=== PATIENT | female | born 1990 | race Caucasian/White ===

== ENCOUNTER 2017-01-05 16:56 | Emergency (ER) | payer SELFPAY ==
[2017-01-05] MEDS ORDERED: NORMAL SALINE 10 ML SYRINGE FLUSH IVP PRN (17:20)
[2017-01-05] MEDS ORDERED: Sodium Chloride 0.9% 1,000 ML PRIMARY IV ONE (17:20)
[2017-01-05 17:26] VITALS: RESP 18; TEMP 97
[2017-01-05] MEDS ORDERED: Famotidine Inj 20 MG in Normal Saline Flush 10 ML IVP ONE (17:27)
[2017-01-05] MEDS ORDERED: ONDANSETRON 4 MG/2 ML VIAL IVP ONE (17:27)
[2017-01-05 17:33] LABS: BASOPHILS # (AUTO) 0.02 10*3/UL; BASOPHILS % (AUTO) 0.5 % (0-1); EOSINOPHILS # (AUTO) 0.14 10*3/UL; EOSINOPHILS % (AUTO) 3.6 % (0-8); HEMATOCRIT 36.2 % (37.0-47.0); HEMOGLOBIN 12.4 g/dL (12.0-16.0); LYMPHOCYTES # (AUTO) 1.44 10*3/uL; MEAN CORPUSCULAR HEMOGLOBIN 30.2 PG (27-31); MEAN CORPUSCULAR HGB CONC 34.3 g/dL (33-37); MEAN CORPUSCULAR VOLUME 88.3 FL (81-99); MEAN PLATELET VOLUME 9.5 FL (7.4-12.2); MONOCYTES # (AUTO) 0.45 10*3/UL (0.3-0.8); MONOCYTES % (AUTO) 11.7 % (5-15); NEUTROPHILS # (AUTO) 1.79 10*3/UL; NEUTROPHILS % (AUTO) 46.7 % (50-80)
[2017-01-05 17:34] LABS: PLATELET MORPHOLOGY COMMENT NORMAL MORPHOLOGY (NORM); RBC MORPHOLOGY COMMENT NORMAL MORPHOLOGY (NORM); WBC MORPHOLOGY COMMENT NORMAL MORPHOLOGY (NORM)
[2017-01-05 17:46] LABS: BLOOD UREA NITROGEN 11 mg/dL (7-22); BUN/CREATININE RATIO 13.75 (6-20); CALCIUM 8.4 mg/dL (8.7-10.7); EST GLOMERULAR FILTRATION > 60 (>60 ml/min/1.73m(2)); LIPASE 55 IU/L (23-300); SERUM ALBUMIN 3.7 g/dL (3.5-4.8)
[2017-01-05 17:58] LABS: C-REACTIVE PROTEIN 14.7 mg/dL (0.0-0.9)
[2017-01-05 18:10] LABS: BILIRUBIN,URINE NEGATIVE (NEG); CLARITY,URINE CLEAR (CLEAR); COLOR,URINE YELLOW; GLUCOSE, URINE (UA) NEGATIVE (NEG); NITRATE,URINE NEGATIVE (NEG); OCCULT BLOOD,URINE MODERATE (NEG); PROTEIN,URINE NEGATIVE (NEG); UROBILINOGEN,URINE 0.2 EU/dL (0.2)
[2017-01-05 18:14] LABS: SQUAMOUS EPITHELIAL CELL,UR MANY; URINE SAMPLE TYPE VOIDED SPECIMEN
--- NOTE | 2017-01-05 19:16 | PDOC ---
Abdomen/Flank HPI - General Chief Complaint: Abdomen Pain Stated Complaint: "I HAVE COLITIS" Date Seen by Provider: 01/05/17 Time Seen by Provider: 17:00 Source: POSITIVE: Patient Exam Limitations: POSITIVE: No limitations Nurse's Notes Reviewed & Considered: Yes - History of Present Illness Initial Comments: The patient is a 26-year-old female who presents to the emergency department with complaints of abdominal pain and diarrhea. She states that 3 days ago she had onset of diarrhea. Initially this was loose watery diarrhea. Over last 24 hours the stool has started to contain blood as well. She does have some associated generalized abdominal pain. She states that her pain intensifies significantly just before she has a bowel movement and then is relieved after she has a bowel movement. Eating also seems to make the pain somewhat worse. She was seen in the emergency department [place] [facility] [place]. She underwent blood work, pelvic exam, chest x-ray and abdominal CT. Her blood work was all essentially unremarkable with a normal white blood cell count and normal electrolytes. Her TSH was elevated and T4 was low. She had CT of the abdomen and pelvis which showed inflammation in the ascending colon consistent with colitis as well as moderate stool in the descending colon. No other acute abnormalities were noted on the radiology reading. She reports that she was diagnosed with colitis and sent home. She was given a prescription for Zofran. She last took Zofran about 9:00 this morning. She has continued nausea without vomiting. She has continued symptoms and became concerned and decided to come here for a second opinion. She denies urinary symptoms, fevers or chills. She does report over the past several months she has had fairly significant weight loss. She states that she is vitamin D deficient as well. She denies any recent travel and has not had any recent antibiotic usage. - Patient Home Medications Home Medications: Home Medications Acetaminophen [Tylenol] 500 mg PO PRN PRN 01/05/17 Levothyroxine Sodium 125 mcg PO DAILY 01/05/17 Ondansetron Odt [Zofran Odt] 8 mg PO Q6H PRN #10 tab.rapdis 01/05/17 Ondansetron [Zofran Odt] 4 mg PO Q6H PRN PRN 01/05/17 - Patient Allergies Allergies/Adverse Reactions: Allergies Allergy/AdvReac Type Severity Reaction Status Date / Time levofloxacin [From Levaquin] Allergy Intermediate HIVES Verified 01/05/17 17:15 Penicillins Allergy Intermediate HIVES Verified 01/05/17 17:15 Past Medical History - heen HEENT History: Denies History Cardiovascular History: Denies History Respiratory History: Denies History Gastrointestinal History: Colitis, Other (please comment) Additional Gastrointestinal History: DX'D YESTERDAY 01/04/17 IN [facility] PER PT. HX OF UMB HERNIA SURGERY X 2 Genitourinary History: Denies History Endocrine History: Denies History Musculoskeletal History: Denies History Prosthesis or Implant: No Neurological History: Denies History Blood Disorders: Anemia Psychiatric History: Denies History LMP: NOW Obstetrical History: Labor, Delivery Additional Obstetrical History: X1 : 6 Para: 5 Cancer History: Denies History In Past Year Been Physically Harmed or Verbally Threatened: No History of MDRO: No Tobacco Use: Current Every Day Smoker Alcohol Use: Rarely Substance Use Type: None Previous Surgical History: Yes Type / Date of Surgery: C SECTION, HERNIA X2 Anesthesia Reactions: No Significant Family History: No pertinent family hx Past Medical History Reviewed: Reviewed - No Changes ROS - Limitations ROS Limitations: No Limitations Constitution: DENIES: Chills, Fever Cardiovascular: REPORTS: Denies Cardiac Symptoms Respiratory: REPORTS: Denies Resp Symptoms Neurological: REPORTS: Dizziness (Somewhat lightheaded especially with standing) . DENIES: Confusion, Headache, Numbness, Weakness Gastrointestinal: REPORTS: Abdominal Pain, Nausea, Diarrhea, Bloody Stools. DENIES: Vomitting Endocrine: REPORTS: Fatigue Musculoskeletal: REPORTS: Denies MS Symptoms Genitourinary: REPORTS: Denies Symptoms Eyes: REPORTS: Denies Symptoms ENT: REPORTS: Denies Symptoms Skin: DENIES: Rash Abdominal/Flank Pain PE - General Appearance General Appearance: POSITIVE: Alert, Cooperative, No Acute Distress - HEENT HEENT: POSITIVE: Head Inspection Nml, Eyes Inspection Nml, Ears Inspection Nml, Nose Inspection Nml, Oral/Dental Inspect. Nml, Pharynx Inspect. Nml - Neck Neck: POSITIVE: Normal Inspection. NEGATIVE: Lymphadenopathy - Respiratory Respiratory: POSITIVE: No Respiratory Distress, Breath Sounds Normal - Cardiovascular Cardiovascular: POSITIVE: Regular Rate and Rhythm, Heart Sounds Normal - Abdomen Abdomen: Soft: (All Quadrants), Normal Bowel Sounds: (All Quadrants), No Distention: (All Quadrants) Additional Abdominal Details: She does have mild generalized abdominal tenderness without guarding or rebound tenderness - Skin Skin: POSITIVE: Intact, No Rash - Extremities Extremity: Normal ROM: (All Extremities), Normal Inspection: (All Extremities) - Neurological Neurological: POSITIVE: Oriented X3, paper roller Normal As Tested, Motor Normal, Sensation Normal Abdomen Progress - Results Reviewed by me Radiology Findings: Radiology reports from her chest x-ray and [facility] [place] [facility] were [place]. Lab Results Reviewed: Yes Lab Results:: Laboratory Results 01/05/17 01/05/17 Range/Units 17:25 18:00 WBC 3.84 L (4.8-10.8) 10^3/uL RBC 4.10 L (4.20-5.40) 10^6/uL Hgb 12.4 (12.0-16.0) g/dL Hct 36.2 L (37.0-47.0) % MCV 88.3 (81-99) FL MCH 30.2 (27-31) PG MCHC 34.3 (33-37) g/dL RDW Std Deviation 41.3 (39-50) fL RDW Coeff of [place] 13.1 (11.5-14.5) % Plt Count 165 (140-350) 10*3/uL MPV 9.5 (7.4-12.2) FL Immature Gran % (Auto) 0 (0-5) % Neut % (Auto) 46.7 L (50-80) % Lymph % (Auto) 37.5 (10-50) % Love % (Auto) 11.7 (5-15) % Eos % (Auto) 3.6 (0-8) % Baso % (Auto) 0.5 (0-1) % Immature Gran # (Auto) 0 10*3/UL Neut # (Auto) 1.79 10*3/UL Lymph # (Auto) 1.44 10*3/uL Love # (Auto) 0.45 (0.3-0.8) 10*3/UL Eos # (Auto) 0.14 10*3/UL Baso # (Auto) 0.02 10*3/UL WBC Morphology Comment Normal morphology (NORM) Plt Morphology Comment Normal morphology (NORM) RBC Morph Comment Normal morphology (NORM) Sodium 137 (135-145) meq/L Potassium 3.3 L (3.8-5.2) meq/L Chloride 108 (98-112) meq/L Carbon Dioxide 22 L (23-33) meq/L Anion Gap 7 (5-20) BUN 11 (7-22) mg/dL Creatinine 0.8 (0.50-1.20) mg/dL Estimated GFR > 60 (>60 ml/min/1.73m(2)) BUN/Creatinine Ratio 13.75 (6-20) Glucose 87 (78-110) mg/dL Calculated Osmolality 281.0 (267-292) mOsm/kg Calcium 8.4 L (8.7-10.7) mg/dL Total Bilirubin 0.4 (0.3-1.2) mg/dL AST 16 (8-39) IU/L ALT 25 (9-52) IU/L Alkaline Phosphatase 49 (38-126) IU/L C-Reactive Protein 14.7 H (0.0-0.9) mg/dL Total Protein 6.6 (6.1-8.0) g/dL Albumin 3.7 (3.5-4.8) g/dL Globulin 2.9 (2.50-4.10) g/dL Albumin/Globulin Ratio 1.20 L (1.3-2.0) mg/g Amylase 42 (30-110) U/L Lipase 55 (23-300) IU/L Serum HCG, Qual Negative Ur Collection Type Voided specimen Urine Color Yellow Urine Clarity Clear (CLEAR) Urine pH 6.0 (5.0-8.5) Ur Specific [place] 1.010 (1.005-1.030) Urine Protein Negative (NEG) mg/dl Urine Glucose (UA) Negative (NEG) mg/dL Urine Ketones Negative (NEG) Urine Occult Blood Moderate H (NEG) Urine Nitrate Negative (NEG) Urine Bilirubin Negative (NEG) Urine Urobilinogen 0.2 (0.2) EU/dL Ur Leukocyte Esterase Negative (NEG) Urine RBC 3-5 (NONE) /hpf Urine WBC None (NONE) Ur Squamous Epith Cells Many (NONE) Ur Renal Epithelial Cell None (NONE) Urine Crystals None Urine Bacteria None (NONE) Urine Casts None (NONE) Urine Mucus None (NONE) Urine Trichomonas None (NONE) Urine Yeast None (NONE) Ur Culture Indicated? Culture not set - Patient's Progress MDM / ED Course: On arrival the patient was somewhat orthostatic with a raisin pulse from the 70s to the 100s with standing. An IV was established and she did receive 1 L bolus of normal saline. She also received Zofran 4 mg IV and Pepcid 20 mg IV. After administration of medications her nausea was improved and her stomach was less upset. Lab work was obtained from here and was all unremarkable except for an elevated CRP at 16. We did obtain records [place] [facility] [place] visit yesterday. This was also reviewed. Her CT abdomen and pelvis did show inflammation in the descending colon consistent with colitis. The patient's hemoglobin is slightly lower than yesterday however stable. At this point the patient was unable to give a stool sample here. She appears to be hemodynamically stable. She will be sent home with instructions to collect stool studies for C. difficile, Giardia, cryptosporidium and culture. She will bring that back to the lab here. At this point differential diagnosis includes infectious colitis versus inflammatory bowel disease. She was advised return to the emergency room if she develops increased pain, increased bleeding, fever, any worsening or change in symptoms. She will follow-up with her primary care provider and Sree tomorrow or the next day. Hopefully by then stool studies will be available. If this is negative and she has continued symptoms she will likely need colonoscopy. In addition the patient has experienced weight loss over the last several months and her TSH was significantly elevated at 30 on her blood work from [facility] [place]. She is advised to discuss this with her primary care provider as well. - Consult Counseled: POSITIVE: Patient, RE: Lab Results, RE: Radiology Results, RE: DX, RE : Need for F/U Patient Care Time - Estimated PCT Patient Care Time (In Minutes): 35 Vital Signs - Recent Vital Signs Vital Signs: Vital Signs (Last 8 hours) Temp Pulse Pulse Pulse Pulse Resp BP 01/05/17 17:00 69 75 91 106/62 01/05/17 16:57 97 F 74 18 BP BP BP Pulse Ox 01/05/17 17:00 96/66 96/71 01/05/17 16:57 96/54 98 - VS Reviewed Vital Signs Reviewed: Yes Discharge Clinical Impression: Colitis Discharge Disposition: Discharged to Home Condition: Stable Prescriptions / Orders: Ondansetron Odt [Zofran Odt] 8 mg PO Q6H PRN #10 tab.rapdis PRN Reason: Nausea / Vomiting Patient Instructions Given at Discharge: Colitis (ED) Additional Instructions: The CAT scan of your abdomen and pelvis from yesterday at [facility] does show inflammation in the first part of the large intestine consistent with colitis. Your blood work done today is all unremarkable except for an elevated inflammatory marker. Stool studies have been ordered to rule out an infectious cause of this colitis, you will be sent home with materials to collect a sample which can be brought back to the lab. Continue Zofran every 4-6 hours as needed for nausea or vomiting. [place] diet. Pepcid twice a day. Return to the emergency room if increased pain, dehydration, increased bleeding, lightheadedness or passing out, any worsening or change in symptoms. Recommend follow-up with your primary care provider in 1-2 days to discuss results of the stool studies as well as your recent problems with weight loss. The blood work done at [facility] [place] did reveal evidence of low thyroid. Your current dose of thyroid medication may not be adequate. You should also discuss this with your primary care provider. Follow Up With: KISHORE Ann [Primary Care Provider] -
== END 2017-01-05 19:13 | disposition home or self-care (01) ==
LOC: ER 16:56
DX: K52.9 Noninfective gastroenteritis and colitis, unspecified (principal); R19.7 Diarrhea, unspecified; R11.0 Nausea; R42 Dizziness and giddiness; R10.84 Generalized abdominal pain
CPT/HCPCS: 80053; 81001; 81003; 82150; 83690; 84703; 85025; 86140; 96361; 96374; 96375; 99283 ×2; J2405; S0028; J7030